=== PATIENT | female | born 1975 | race Caucasian/White ===

== ENCOUNTER 2016-04-25 12:25 | Outpatient (CLI) | payer OTHER | END 2016-04-25 12:26 | disposition home or self-care (01) | DX: C50.211 Malignant neoplasm of upper-inner quadrant of right female breast (principal) ==

== ENCOUNTER 2016-05-03 10:49 | Outpatient (CLI) | payer OTHER | END 2016-05-03 10:50 | disposition home or self-care (01) | DX: N63 Unspecified lump in breast (principal) ==

== ENCOUNTER 2020-04-28 15:57 | Emergency (ER) | payer OTHER ==
--- NOTE | 2020-04-28 16:34 | ED Physician Documentation ---
PD HPI LOWER EXT INJURY - Stated complaint Stated Complaint: LT KNEE PX - Chief complaint Chief Complaint: Trauma Ext - History obtained from History obtained from: Patient - Additional information Additional information: Patient comes emergency department chief complaint of left knee pain after jumping onto her pony. Patient states that the ground was slippery and that Her left foot slid, causing her knee to go down while her lower leg went off to the side. Patient states she felt a pop. She states she felt like her kneecap popping out every time she would try to stand on it. She has had a sharp pain inferior to the lateral aspect of her patella. No prior injury to the knee. No numbness or tingling distally. No other complaints at this time. Review of Systems Ten Systems: 10 systems reviewed and negative Constitutional: reports: Reviewed and negative Eyes: reports: Reviewed and negative Ears: reports: Reviewed and negative Nose: reports: Reviewed and negative Throat: reports: Reviewed and negative Cardiac: reports: Reviewed and negative Respiratory: reports: Reviewed and negative GI: reports: Reviewed and negative : reports: Reviewed and negative Skin: reports: Reviewed and negative Musculoskeletal: reports: Joint pain. 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 - Present Medications Home Medications: Ambulatory Orders Medication Instructions Recorded Confirmed No Known Home Medications 07/24/15 04/28/20 - Allergies Allergies/Adverse Reactions: Allergies Allergy/AdvReac Type Severity Reaction Status Date / Time Zofran ODT Allergy Intermediate heart Uncoded 04/28/20 16:05 palpitations - Social History Does the pt smoke?: No Smoking Status: Never smoker Does the pt drink ETOH?: Yes Does the pt have substance abuse?: No - Immunizations Immunizations are current?: Yes - POLST Patient has POLST: No PD ED PE NORMAL - Vitals Vital signs reviewed: Yes - General General: Alert and oriented X 3, No acute distress - HEENT HEENT: Atraumatic, PERRL, EOMI, Moist mucous membranes - Neck Neck: Supple, no meningeal sign - Cardiac Cardiac: Strong equal pulses - Respiratory Respiratory: No respiratory distress - Back Back: No CVA TTP - Derm Derm: Normal color, Warm and dry, No rash - Extremities Extremities: No deformity, No edema, Other (Tenderness palpation over the inferior lateral aspect of left knee. No instability with medial lateral stress or anterior posterior stress. Patient is able to stand on the knee without instability. She can ambulate with a limping gait. No patellar tenderness.) - Neuro Neuro: Alert and oriented X 3, No motor deficit, No sensory deficit - Psych Psych: Normal mood, Normal affect Results - Vitals Vitals: Vital Signs - 24 hr 04/28/20 16:02 Temperature 36.0 C L Heart Rate 71 Respiratory 14 Rate Blood Pressure 110/73 O2 Saturation 99 Oxygen O2 Source Room air PD MEDICAL DECISION MAKING - ED course Complexity details: considered differential, d/w patient ED course: I discussed with the patient that a feel she is most likely sprained her knee. I do not find evidence of a dislocation, as the patient's knee is very stable. I will put her in a knee immobilizer and give her a pair of crutches. I have advised her to follow-up for MRI with her primary care physician or orthopedics if she is not noticing any improvement in the next couple of weeks. We have discussed to the usual indications for return. Departure - Departure Disposition: 01 Home, Self Care Clinical Impression: Left knee sprain Qualifiers: Encounter type: initial encounter Involved ligament of knee: unspecified ligament Qualified Code(s): S83.92XA - Sprain of unspecified site of left knee, initial encounter Condition: Stable Instructions: ED Sprain Knee Comments: Your knee is stable on exam today and there is no evidence of dislocation. Most likely, you have sprained one of the many ligaments of your knee. Please wear the knee immobilizer until your knee is feeling better and use crutches to help unburden your knee when you walk, if needed. You may take ibuprofen and Tylenol [id number] as needed for pain. If you are not noticing any significant improvement after the next couple of weeks, you should speak with your doctor about having MRI done.
[2020-04-28 16:59] VITALS: BP 133/73
--- NOTE | 2020-04-28 17:15 | XRAY Report ---
PROCEDURE: Knee 3 View LT INDICATIONS: KNEE INJURY TECHNIQUE: 3 views of the left knee(s) were acquired. COMPARISON: None. FINDINGS: Bones: No fractures or dislocations. No suspicious bony lesions. Soft tissues: No joint effusion. No suspicious soft tissue calcifications. IMPRESSION: No trauma found, no joint effusion identified. Reviewed by: Uri Aguirre MD on 04/28/2020 5:14 PM PST Approved by: Uri Aguirre MD on 04/28/2020 5:14 PM PST Station ID: [id number]
== END 2020-04-28 17:02 | disposition home or self-care (01) ==
LOC: ED 15:57
DX: S83.92XA Sprain of unspecified site of left knee, initial encounter (principal); W17.89XA Other fall from one level to another, initial encounter; Y93.39 Activity, other involving climbing, rappelling and jumping off
CPT/HCPCS: 99282; 99283

== ENCOUNTER 2020-05-21 13:22 | Outpatient (CLI) | payer OTHER ==
--- NOTE | 2020-05-21 17:17 | MRI Report ---
PROCEDURE: Knee LT W/O INDICATIONS: LT KNEE JOINT PAIN TECHNIQUE: Noncontrast sagittal PD fast spin echo and T2 fast spin echo with fat saturation, sagittal 3-D gradie nt sequence with fat saturation; coronal T1 spin echo and PD fast spin echo with fat saturation, and axial PD fast spin echo with fat saturation through the knee. COMPARISON: None. FINDINGS: Image quality: Excellent. Menisci: The medial and lateral menisci demonstrate normal morphology and internal signal. The meni scal root ligaments appear intact. Cruciate ligaments: There is full-thickness rupture involving anterior cruciate ligament near its fem oral insertion. PCL is intact. Medial structures: The medial collateral ligament appears intact. The posterior oblique ligament, s emimembranosus tendon insertions, and oblique popliteal ligament, and meniscocapsular junction appear intact. Visualized portions of the pes anserinus tendons appear normal. No abnormal bursal fluid. Lateral structures: The lateral collateral ligament, long and short heads of the biceps femoris tend on appear intact. The popliteus tendon appears normal; the popliteofibular ligament appears intact. The posterosuperior and anteroinferior popliteomeniscal fascicles appear intact. The arcuate and fa bellofibular ligaments appear intact, around the lateral inferior geniculate artery. Iliotibial band appears normal. Anterior structures: The quadriceps and patellar tendons appear intact. Patellar alignment is umair l. No femoral trochlear dysplasia or ventral trochlear prominence. No edema in the infrapatellar fa t pad. Bones and cartilage: Extensive marrow edema involving posterior portion of proximal tibia extending t o both medial and lateral tibial plateau with a subtle subcortical linear hypointense signal suggesti ve of contusion and nondisplaced subcortical fracture. Marrow edema is also noted involving weightbearing portion of lateral femoral condyle without discret e fracture line. Articulating cartilages in medial and lateral femoral tibial compartment and patello femoral compartment are grossly intact. Joint space: There is moderate amount of joint fluid, no gross intra-articular loose body. No Fields ?s cyst. Normal appearing synovial plicae are incidentally noted. IMPRESSION: 1. Full-thickness rupture of anterior cruciate ligament at its femoral insertion. PCL is intact. 2. Bony contusion involving lateral weightbearing portion of lateral femoral condyle and posterior po rtion of proximal tibia extending to both medial and lateral tibial plateau. Suggestion of subtle non displaced subcortical fracture involving posterior portion of proximal tibia at the site of edema. 3. Moderate joint effusion, no gross loose body. 4. No evidence of focal meniscal tear. Reviewed by: Austen Hernandez MD on 05/21/2020 5:16 PM PST Approved by: Austen Hernandez MD on 05/21/2020 5:16 PM PST Station ID: [id number]
== END 2020-05-21 13:23 | disposition home or self-care (01) ==
LOC: DI 13:22
PROVIDERS: ATTEND Physician Assistant
DX: M25.562 Pain in left knee (principal); S83.512A Sprain of anterior cruciate ligament of left knee, initial encounter; M25.462 Effusion, left knee